=== PATIENT | female | born 1945 | race Caucasian/White ===

== ENCOUNTER → 2019-02-18 | Outpatient (CLI) | payer MEDICARE, OTHER ==
--- NOTE | 2019-02-18 11:35 | RADIOLOGY IMAGING REPORT ---
FACILITY: [facility] [place] PATIENT NAME: Joi Kidd : 1945 MR: [id number] V: [id number] EXAM DATE: ORDERING PHYSICIAN: AB WALKER TECHNOLOGIST: Location: [facility] [place] Patient: Joi Kidd : 1945 Visit/Account:[id number] Date of Sevice: 02/18/2019 Exam type: SHOULDER MIN 2 VIEWS RIGHT History: Right shoulder pain, injury six weeks ago Comparison: None Findings: Four views of the right shoulder were submitted. There are mild degenerative changes at the right gl enohumeral joint. There is no gross evidence of acute fracture or dislocation of the right shoulder . Mild degenerative changes of the right AC joint also noted.. IMPRESSION: 1. 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 If patient's pain continues MR is recommended Report Dictated By: Rin Potter MD at 02/18/2019 11:28 AM Report E-Signed By: Rin Potter MD at 02/18/2019 11:30 AM WSN:[email or web address]
== END ==
LOC: RAD 10:03
PROVIDERS: ATTEND Chiropractor
DX: M19.011 Primary osteoarthritis, right shoulder (principal)